=== PATIENT | female | born 1970 | race Caucasian/White ===

== ENCOUNTER 2025-10-21 09:40 | Emergency (ER) | payer BC, SELFPAY ==
[2025-10-21 09:41] VITALS: BP 131/84
--- NOTE | 2025-10-21 10:03 | ED.GENMED ---
History of Present Illness
General
Chief Complaint: Abdominal Pain
Source: patient
Exam Limitations: none
Time Seen by Provider: 10/21/25 09:48
Nursing documentation reviewed up to this point in time: agreed with
History of Present Illness
History of Present Illness:
Patient is a 55-year-old female who has a past medical history of Crohn's not currently treated, hypertension presents to the ER for evaluation patient reports that she has chronic diarrhea every day and has fecal incontinence at least once a week.
She used to see GI at [facility] however has not seen them since 2020 and takes no medicine for Crohn's. She has had chronic upper abdominal pain and burning for 2 years. She does have history of having her gallbladder removed greater than 15 years
ago and believes she may have dumping syndrome related to her chronic symptoms.
She presents to the ER today with her typical upper abdominal pain which is worse. She has not taken any medicine for this. In addition she reports for the past today she feels very short of breath and feels like she 'cannot get enough breath in.'
She is on Zepbound prescribed at [facility] and has been on this for over a year.
She denies any chest pain.
She does not smoke. She is not on any hormone replacement or contraception. No prior history of DVT. No cardiac history.
Phy Exam
General Physical Exam
General Presentation: no apparent distress
General age: appears stated age
General Skin: warm and dry
General Habitus: normal
General Mental: alert
General Hydration: appears well hydrated
Cardiovascular Exam
Cardiovascular Exam: regular rate/rhythm, no murmur and normal peripheral pulses
Pulmonary Exam
Pulmonary Exam: lungs clear and no respiratory distress
Gastrointestinal Exam
Gastrointestinal Exam: other (Tender epigastric region)
Neurological Exam
Neurological Exam: alert and oriented x3
Musculoskeletal Exam
Musculoskeletal Exam: full ROM
Skin Exam
Skin Exam: normal color and warm/dry
Psychiatric Exam
Psychiatric Exam: normal mood/affect
Course
Orders/Labs/Results
Orders:
Orders
10/21/25 10:03
Electrocardiogram (*1) Stat
Reason for Study: Abdominal Pain
Cardiac Monitoring- Treatment ONCE
EKG- Treatment ONCE
IV Insert/Care/Rem.- Treatment PRN
0.9% Sodium Chloride 1000 ml [Nss] 1,000 ml IV BOLUS
Test Result ONCE
US Abdomen Complete/Upper Urgent
Comment:
Reason For Exam: upper abd pain
10/21/25 10:04
Famotidine [Pepcid] 20 mg IV NOW STA
Mag Hydrox/Al Hydrox/Simeth [Maalox] 30 ml Phenobarb/Hyoscy/Atropine/Scop [] 10 ml PO NOW
10/21/25 10:17
Mag Hydrox/Al Hydrox/Simeth [Maalox] 30 ml .ROUTE .STK-MED ONE
Phenobarb/Hyoscy/Atropine/Scop [] 10 ml .ROUTE .STK-MED ONE
10/21/25 10:33
Basic Metabolic Panel Urgent
Complete Blood Count/With Diff Urgent
DDimer [D-Dimer] Urgent
HCG, Serum Qualitative Screen Urgent
Lipase Urgent
10/21/25 12:09
CT Abd/pelvis W Iv Cont Urgent
Comment:
Reason For Exam: upper abd pain
10/21/25 12:13
Chest [CR Chest - 2 Views ] Urgent
Comment:
Reason For Exam: sob
10/21/25 12:15
Pro-BNP [NT-proBNP] Urgent
Troponin I Urgent
Abnormal Lab Results
10/21/25
10:33
Hgb 11.2 L g/dL
(12.0-16.0)
Hct 34.2 L %
(37.0-47.0)
MCV 79.7 L fL
(81.0-99.0)
MCH 26.1 L pg
(27.0-31.0)
MCHC 32.7 L g/dL
(33.0-37.0)
BUN 18 H mg/dl
(7-17)
Glucose 68 L mg/dl
(70-99)
Lipase 952 H U/L
(23-300)
10/21/25 10:33
10/21/25 10:33
Vital Signs
Initial and Last Documented VS:
Initial Vital Signs
Temp Pulse Resp BP Pulse Ox
97.6 F 76 20 131/84 100
10/21/25 09:41 10/21/25 09:41 10/21/25 09:41 10/21/25 09:41 10/21/25 09:41
Last Documented Vital Signs
Temp Pulse Resp BP Pulse Ox
97.6 F 68 16 120/61 100
10/21/25 09:41 10/21/25 10:40 10/21/25 10:40 10/21/25 14:14 10/21/25 10:40
Roller Pneumatic consulted with Physician
Roller Pneumatic consulted with physician?: Yes
Name of Physician Consulted: Lakesha
MDM/Problems Addressed
Differential Diagnosis Includes:
Not limited to epigastric discomfort, GERD, gastritis, ulcer disease, pancreatitis, ductal stone
MDM/Problems Addressed:
As documented patient is a 55 female with past history of cholecystectomy, Crohn's who presented with upper abdominal burning. This is not necessarily new she has had this off and on. She has been on Zepbound for over a year. Today she felt like
she was having difficulty breathing was not sure if this was anxiety over the situation. She does have Crohn's and has not been on medicine in years and no longer follows up with GI. She has chronic diarrhea this is not new. She presents awake
alert no acute distress she does have epigastric tenderness. She was given Pepcid along with Maalox here in the ER. Her lipase is elevated at 952 with a normal white count normal renal function. Blood sugar was mildly low patient was given apple
juice.
Regarding patient's shortness of breath she is in no acute distress lungs are clear she is nontachycardic nontachypneic no DVT PE risk factors. Her D-dimer cardiac troponin and BNP are all normal.
ultrasound is otherwise unremarkable. CAT scan obtained shows no acute pathology mild hepatomegaly there is mild mesenteric lymphadenopathy and probable benign bony islands however will need outpatient follow up for this.
On re-exam pt wants to go home. She did tolerate oral apple juice here in the ER. Discussed clear liquids with a close outpatient follow-up with family doctor as well as GI will notify GI front end software engineer to expedite appointment. Return precautions
reviewed patient does not drink alcohol however I did reiterate no alcohol and also to stop Zepbound until cleared by GI/family doctor.
Chronic conditions affecting care:
On Zepbound, Crohn's disease
*Radiology
Radiology exam reviewed: radiology read reviewed
*Pulse Oximetry
SaO2: 100
Oxygen Mode of Delivery: Room air
Patient hypoxic: no
*Critical Care Note
Total Time (30-74mins, 75-104mins- exclusive of procedures): Not Applicable
ED Attending Note
-
Portions of this chart may have been created with voice recognition software.� Occasional wrong word or��sound alike� substitutions may have occurred due to the inherent limitations of voice recognition software.
Discharge Plan
Departure
Patient Disposition: Home (Routine Discharge)
Date of Disposition: 10/21/25
Time of Disposition: 14:45
Patient with high blood pressure during this ER visit?: Yes
Condition: Fair
Covid-19: Not Applicable
Discharge Problem:
Pancreatitis
Instructions: Pancreatitis (DC), BLOOD PRESSURE
Prescriptions:
No Action
phentermine 37.5 mg Tablet
37.5 mg PO DAILY
Rx Instructions:
must administer 30 minutes before or 1-2 hours after breakfast
montelukast [Singulair] 10 mg Tablet
10 mg PO HS
hydrochlorothiazide 25 mg Tablet
25 mg PO HS
Wegovy 1.7 mg/0.75 mL Pen Injector
1.7 mg SC TH
Rx Instructions:
valsartan 160 mg Tablet
160 mg PO HS
acetaminophen 325 mg Tablet
650 mg PO Q4HPRN PRN (Reason: Mild Pain / Temp > 101) Qty: 1 0RF
ibuprofen 600 mg tablet
600 mg PO TID Qty: 15 0RF
pantoprazole [Protonix] 40 mg tablet,delayed release (DR/EC)
40 mg PO DAILY Qty: 5 0RF
Rx Instructions:
take it while on NSAIDs
Referrals:
Gorge Fernando MD [Active, Gastroenterology]
Evaristo Mcwilliams DO [Family Provider, Family Practice]
Activity Restrictions/Additional Instructions:
As discussed clear liquids until seen and evaluated by family doctor and GI.
You should receive a phone call from the GI office for an expedited appointment. Please schedule soon as possible. In addition please follow-up with your family doctor in the extremities and reevaluation of your symptoms and also for additional
findings on your CAT scan that will need further evaluation and imaging. Please return if any worsening of symptoms including any abdominal pain nausea vomiting fever chills.
Interventions
Interventions:
*General Assessment Last Done: 10/21/25 09:41
*Neglect/Abuse Screening Last Done: 10/21/25 09:41
[facility] Risk Assessment Tool Last Done: 10/21/25 10:40
*Risk Screen - Suicide (C-SSRS) Last Done: 10/21/25 10:40
*Nursing Disposition Last Done: 10/21/25 15:03
[facility]-Emjxledobm Assessment Last Done: 10/21/25 10:40
Discharge Date and Time
Discharge Date/Time: 10/21/25 15:03
Print Language: THAI
[2025-10-21] MEDS: NSS 1000 IV (10:18)
[2025-10-21] MEDS: MAALOX 40 PO (10:19)
[2025-10-21] MEDS: PEPCID 20 MG IV (10:19)
[2025-10-21 10:44] LABS: Hematocrit 34.2 % (37.0-47.0); Hemoglobin 11.2 g/dL (12.0-16.0); Mean Corp Hgb Conc. 32.7 g/dL (33.0-37.0); Mean Corpuscular Volume 79.7 fL (81.0-99.0); Nucleated Red Blood Cells % 0 %; Platelet Count 216 10^3/uL (130-400); Red Cell Dist. Width 13.0 % (11.5-14.5)
[2025-10-21 10:57] LABS: D-Dimer 0.47 ug/mlFEU (0.00-0.50)
[2025-10-21 11:00] LABS: HCG, Serum Qualitative Screen Negative
[2025-10-21 11:07] LABS: Blood Urea Nitrogen 18 mg/dl (7-17); Calcium 8.6 mg/dl (8.4-10.2); Carbon Dioxide 26 mmol/L (22-30); Chloride 107 mmol/L (98-107); Glucose 68 mg/dl (70-99); Lipase 952 U/L (23-300); Sodium 136 mmol/L (135-145); eGFR > 60.00
[2025-10-21 12:17] VITALS: BP 123/68
[2025-10-21 12:49] LABS: Troponin I < 0.012 ng/ml
[2025-10-21 14:14] VITALS: BP 120/61
== END 2025-10-21 15:03 | disposition home or self-care (01) ==
LOC: EMR 09:40
PROVIDERS: Nurse Practitioner; EMERGENCY PHYSICIAN Emergency Medicine; FAMILY PHYSICIAN Family Medicine
DX: K85.90 Acute pancreatitis without necrosis or infection, unspecified (principal); I10 Essential (primary) hypertension; K50.90 Crohn's disease, unspecified, without complications; Z90.49 Acquired absence of other specified parts of digestive tract
CPT/HCPCS: 99285; 96374; 96361; 71046; 74177; 76700; 80048; 83690; 83880; 84484; 84703; 85025; 85379; 93005; Q9967